=== PATIENT | male | born 2000 | race Hispanic/Latino ===

== ENCOUNTER → 2024-08-12 | Day surgery (SDC) | payer OTHER ==
[~2024-08-12] MED LIST: FAMOTIDINE20 MG PO; FENTANYL CITRATE/PF 100MCG/2 ML INJ ONE; LIDOCAINE HCL 2% LOCAL INJ 5 ML SDV VIAL INJ ONE; MIDAZOLAM HCL 2 MG/2 ML VIAL ONE; ONDANSETRON HCL INJ 2MG/ML 2ML 2 MG/ML VIAL ONE; PROPOFOL IV EMULSION 50 ML IV ONE
[2024-08-12] MEDS: LACTATED RINGER'S 1,000 ML BAG IV ONE (10:10)
[2024-08-12 11:13] VITALS: TEMP 98.8
[2024-08-12 11:35] VITALS: BP 121/66; PULSE 54; RESP 16; O2SAT 99
== END | disposition home or self-care (01) ==
LOC: OR 08:46
PROVIDERS: ATTEND Internal Medicine Gastroenterology
DX: K22.10 Ulcer of esophagus without bleeding (principal); K29.00 Acute gastritis without bleeding; B96.81 Helicobacter pylori [H. pylori] as the cause of diseases classified elsewhere; K29.50 Unspecified chronic gastritis without bleeding; Z72.0 Tobacco use
CPT/HCPCS: 43239; J2003; J2250; J2405; J2470; J2704; J3010; J7121